=== PATIENT | male | born 1965 | race African-American/Black ===

== ENCOUNTER 2021-04-06 08:28 | Outpatient (CLI) | payer MEDICARE, OTHER ==
[2021-04-06 17:57] LABS: SARS-CoV-2 PCR by NAA Not Detected (NotDetected)
== END 2021-04-06 08:29 | disposition home or self-care (01) ==
LOC: CSHLAB 08:28
PROVIDERS: ATTEND Internal Medicine Critical Care Medicine
DX: Z20.822 Contact with and (suspected) exposure to COVID-19 (principal)
CPT/HCPCS: U0003; U0005

== ENCOUNTER 2021-04-28 12:47 | Outpatient (CLI) | payer MEDICARE, OTHER ==
[2021-04-28 23:48] LABS: SARS-CoV-2 PCR by NAA Not Detected (NotDetected)
== END 2021-04-28 12:48 | disposition home or self-care (01) ==
LOC: CSHLAB 12:47
PROVIDERS: ATTEND Internal Medicine Critical Care Medicine
DX: Z20.822 Contact with and (suspected) exposure to COVID-19 (principal)
CPT/HCPCS: U0003; U0005

== ENCOUNTER 2021-05-03 14:25 | Outpatient (CLI) | payer MEDICARE, OTHER | END 2021-05-03 14:26 | disposition home or self-care (01) | LOC: CSHCP 14:25 | PROVIDERS: ATTEND Internal Medicine Critical Care Medicine | DX: J44.9 Chronic obstructive pulmonary disease, unspecified (principal) | CPT/HCPCS: 94060; 94726; 94729; 94760 ==

== ENCOUNTER 2022-02-21 12:27 | Emergency (ER) | payer OTHER ==
[2022-02-21] MEDS ORDERED: Atropine Sulfate 1 mg/10 ml Syringe ONE (12:34)
[2022-02-21 13:35] LABS: #Basophils 0.1 10x3/uL (0.0-0.2); #Eosinphils 0.1 10x3/uL (0.0-0.5); #Monocytes 0.9 10x3/uL (0.0-1.1); #Neutrophils 6.2 10x3/uL (1.5-8.4); %Basophils 0.6 % (0.0-2.0); %Eosinophils 1.2 % (0.0-6.0); %Lymphocytes 29.1 % (18.0-47.0); %Monocytes 8.5 % (0.0-10.0); %Neutrophils 60.3 % (40.0-75.0); Hemoglobin 14.7 g/dL (13.5-17.5); Mean Corpuscular HGB CONC 33.8 g/dL (32.0-36.0); Mean Corpuscular Hemoglobin 33.6 pg (27.0-33.0); Mean Corpuscular Volume 99.5 fl (81.2-95.1); Mean Platelet Volume 10.5 fl (7.4-10.4); Platelet Count 179 10x3/uL (150-450); RBC Distribution Width 11.8 % (11.5-14.5); Red Blood Cell (RBC) Count 4.37 10x6/uL (4.32-5.72); White Blood Cell (WBC) Count 10.3 10x3/uL (3.5-10.5)
[2022-02-21 13:45] LABS: INR-International Normal Ratio 1.1; Prothrombin Time 11.9 sec (9.5-12.1)
[2022-02-21 13:46] LABS: ALT (SGPT) 11 U/L (8-55); AST (SGOT) 17 U/L (5-34); Albumin 4.1 g/dL (3.5-5.0); Alkaline Phosphatase 67 U/L (40-110); Anion Gap 17 mmol/L (10-20); BUN (Urea Nitrogen) 41 mg/dL (8.4-25.7); Bilirubin, Total 1.7 mg/dL (0.2-1.2); Calc. Creatinine Clearance 0 mL/min (70-130); Calcium 9.1 mg/dL (7.8-10.44); Carbon Dioxide 20 mmol/L (22-29); Chloride 103 mmol/L (98-107); Estimated GFR 40; Globulin 2.9 g/dL (2.4-3.5); Glucose 75 mg/dL (70-105); Potassium 4.7 mmol/L (3.5-5.1); Sodium 135 mmol/L (136-145)
[2022-02-21 14:08] LABS: CKMB 0.7 ng/mL (0-6.6)
[2022-02-21] MEDS ORDERED: Aspirin Chewable 81 MG TAB ONE (14:57)
== END 2022-02-21 17:11 | disposition short-term general hospital (02) ==
LOC: CSHERS 12:27
DX: I21.4 Non-ST elevation (NSTEMI) myocardial infarction (principal); R00.1 Bradycardia, unspecified; I11.0 Hypertensive heart disease with heart failure; I50.9 Heart failure, unspecified; J44.9 Chronic obstructive pulmonary disease, unspecified; Z79.899 Other long term (current) drug therapy; Z79.82 Long term (current) use of aspirin; Z79.01 Long term (current) use of anticoagulants
CPT/HCPCS: 71045; 80053; 82553; 83880; 84443; 84484; 85025; 85610; 85730; 93005; 96360; J0461

== ENCOUNTER 2022-07-06 13:01 | Observation (INO) | payer OTHER, MEDICAID ==
[2022-07-06 13:29] LABS: #Basophils 0.1 10x3/uL (0.0-0.2); #Eosinphils 0.2 10x3/uL (0.0-0.5); #Monocytes 0.7 10x3/uL (0.0-1.1); %Basophils 0.5 % (0.0-2.0); %Eosinophils 1.3 % (0.0-6.0); %Lymphocytes 26.1 % (18.0-47.0); %Monocytes 5.5 % (0.0-10.0); %Neutrophils 66.3 % (40.0-75.0); Mean Corpuscular HGB CONC 33.3 g/dL (32.0-36.0); Mean Corpuscular Volume 95.9 fl (81.2-95.1); Mean Platelet Volume 10.6 fl (7.4-10.4); Platelet Count 210 10x3/uL (150-450); RBC Distribution Width 11.4 % (11.5-14.5); Red Blood Cell (RBC) Count 4.38 10x6/uL (4.32-5.72); White Blood Cell (WBC) Count 12.1 10x3/uL (3.5-10.5)
[2022-07-06 13:42] LABS: ALT (SGPT) 16 U/L (8-55); AST (SGOT) 24 U/L (5-34); Albumin 4.4 g/dL (3.5-5.0); Alkaline Phosphatase 104 U/L (40-110); Anion Gap 15 mmol/L (10-20); BUN (Urea Nitrogen) 45 mg/dL (8.4-25.7); Bilirubin, Total 1.2 mg/dL (0.2-1.2); Calc. Creatinine Clearance 0 mL/min (70-130); Calcium 9.4 mg/dL (7.8-10.44); Carbon Dioxide 19 mmol/L (22-29); Chloride 102 mmol/L (98-107); Estimated GFR 31; Globulin 3.6 g/dL (2.4-3.5); Glucose 96 mg/dL (70-105); Potassium 4.8 mmol/L (3.5-5.1); Sodium 131 mmol/L (136-145)
[2022-07-06] MEDS ORDERED: Ondansetron PF 4 MG/2 ML Vial ONE (14:17)
[2022-07-06] MEDS ORDERED: Pantoprazole 40 MG VIAL ONE (14:17)
[2022-07-06] MEDS ORDERED: Nitroglycerin 0.4 MG TAB (25 Tab Bottle) SL PRN (14:33)
[2022-07-06] MEDS ORDERED: Ventolin HFA Inhaler 60 PUFF INHALER INH PRN (14:33)
[2022-07-06] MEDS ORDERED: Ondansetron PF 4 MG/2 ML Vial IVP PRN (14:36)
[2022-07-06] MEDS ORDERED: Acetaminophen 325 MG TAB PO PRN (14:36)
[2022-07-06] MEDS ORDERED: Lactated Ringer's 1,000 ML IV SCH (14:45)
[2022-07-06 14:55] LABS: Bilirubin Neg (Negative); Blood, Urine 25 (Negative); Clarity Clear (Clear); Glucose, Urine (Dipstick) Normal (Negative); Ketone, Urine Negative (Negative); Leukocyte 25 (Negative); Nitrite Negative (Negative); Protein, Urine (Dipstick) Negative (Neg-Trace); Specific Gravity, Urine 1.015 (1.005-1.030); Urobilinogen Normal mg/dL (Less than 2)
[2022-07-06 15:00] LABS: CK (CPK) 98 U/L (30-200); Lipase 36 U/L (8-78)
[2022-07-06 15:13] LABS: Bacteria/HPF Rare-Few HPF (None Seen); Squamous Epithelial 0-3 HPF (0-3)
[2022-07-06 15:23] LABS: CKMB 0.9 ng/mL (0-6.6)
[2022-07-06] MEDS ORDERED: Atorvastatin Calcium 40 MG TAB PO SCH (21:00)
[2022-07-06] MEDS: Apixaban 5 MG TAB PO SCH (22:16)
[2022-07-06] MEDS: Carvedilol 3.125 MG TAB PO SCH (22:16)
[2022-07-06 22:20] VITALS: BMI 19.3
[2022-07-07 05:20] LABS: #Basophils 0.1 10x3/uL (0.0-0.2); #Eosinphils 0.2 10x3/uL (0.0-0.5); #Monocytes 0.6 10x3/uL (0.0-1.1); #Neutrophils 4.1 10x3/uL (1.5-8.4); %Basophils 0.9 % (0.0-2.0); %Eosinophils 2.3 % (0.0-6.0); %Lymphocytes 42.6 % (18.0-47.0); %Monocytes 7.2 % (0.0-10.0); %Neutrophils 46.9 % (40.0-75.0); Hemoglobin 13.2 g/dL (13.5-17.5); Mean Corpuscular HGB CONC 33.4 g/dL (32.0-36.0); Mean Corpuscular Hemoglobin 32.4 pg (27.0-33.0); Mean Corpuscular Volume 96.8 fl (81.2-95.1); Mean Platelet Volume 10.1 fl (7.4-10.4); Platelet Count 187 10x3/uL (150-450); RBC Distribution Width 11.4 % (11.5-14.5); Red Blood Cell (RBC) Count 4.08 10x6/uL (4.32-5.72); White Blood Cell (WBC) Count 8.6 10x3/uL (3.5-10.5)
[2022-07-07 05:25] LABS: Anion Gap 13 mmol/L (10-20); BUN (Urea Nitrogen) 33 mg/dL (8.4-25.7); Calc. Creatinine Clearance 44 mL/min (70-130); Calcium 9.3 mg/dL (7.8-10.44); Carbon Dioxide 22 mmol/L (22-29); Chloride 106 mmol/L (98-107); Estimated GFR 53; Glucose 90 mg/dL (70-105); Potassium 5.3 mmol/L (3.5-5.1); Sodium 136 mmol/L (136-145)
[2022-07-07] MEDS ORDERED: Mometasone/Formoterol 60 PUFF AER INH SCH (06:30)
[2022-07-07] MEDS ORDERED: Folic Acid 1 MG TAB PO SCH (09:00)
[2022-07-07] MEDS ORDERED: Aspirin 81 mg Enteric Coated Tablet PO SCH (09:00)
[2022-07-07] MEDS ORDERED: Multivit, Therapeutic 1 TAB PO SCH (09:00)
[2022-07-07] MEDS ORDERED: Sertraline 25 MG TAB PO SCH (09:00)
[2022-07-07] MEDS: Apixaban 5 MG TAB PO SCH (09:05)
[2022-07-07] MEDS: Carvedilol 3.125 MG TAB PO SCH (09:06)
[2022-07-07 13:11] VITALS: BP 117/64; TEMP 98.8
[2022-07-07 13:23] LABS: Anion Gap 11 mmol/L (10-20); BUN (Urea Nitrogen) 26 mg/dL (8.4-25.7); Calc. Creatinine Clearance 50 mL/min (70-130); Calcium 9.2 mg/dL (7.8-10.44); Carbon Dioxide 22 mmol/L (22-29); Chloride 105 mmol/L (98-107); Estimated GFR 61; Glucose 117 mg/dL (70-105); Potassium 4.3 mmol/L (3.5-5.1); Sodium 134 mmol/L (136-145)
== END 2022-07-07 14:12 | disposition home or self-care (01) ==
LOC: CSHERS 13:01 → CSHTELE 21:49
PROVIDERS: ADMIT Internal Medicine; ATTEND Physician Assistant Medical
DX: R11.0 Nausea (principal); I11.0 Hypertensive heart disease with heart failure; I50.22 Chronic systolic (congestive) heart failure; I63.9 Cerebral infarction, unspecified; F41.9 Anxiety disorder, unspecified; F32.A Depression, unspecified; E78.5 Hyperlipidemia, unspecified; I44.4 Left anterior fascicular block; N17.9 Acute kidney failure, unspecified; J44.9 Chronic obstructive pulmonary disease, unspecified; R53.1 Weakness; Z91.018 Allergy to other foods; Z88.8 Allergy status to other drugs, medicaments and biological substances; Z79.82 Long term (current) use of aspirin; Z79.899 Other long term (current) drug therapy; Z87.891 Personal history of nicotine dependence; F12.10 Cannabis abuse, uncomplicated
CPT/HCPCS: 76770; 80048 ×2; 80053; 82550; 82553; 83690; 84484; 85025 ×2; 93005; 94640; 94664; 94760; 96374; 96375; 97116; 99284; G0378 ×2; 36415; 81003; 81015; C9113; J2405